=== PATIENT | male | born 1980 | race African-American/Black ===

== ENCOUNTER 2016-10-13 15:20 | Emergency (ER) | payer OTHER ==
--- NOTE | 2016-10-13 15:33 | ER Document Report ---
ED Medical Screen (RME) - General Chief Complaint: Headache Stated Complaint: HEAD PAIN Time seen by provider: 15:32 Mode of Arrival: Ambulatory Information source: Patient Notes: 36 yo male presents to ed for HTN with headache states he took his BP meds today TRAVEL OUTSIDE OF THE [place] IN LAST 30 DAYS: No - HPI Onset: This morning Onset/Duration: Persistent Quality of pain: Sharp Severity: Severe Pain Level: 5 Associated Symptoms: Headache, Nausea, Other - HTN Exacerbated by: Denies Relieved by: Denies Similar symptoms previously: Yes Recently seen / treated by doctor: No - Related Data Smoking: Quit greater than 1 year Drug Abuse: None Allergies/Adverse Reactions: Penicillins Allergy (Verified 10/13/16 15:30) Past Medical History - Past Medical History Cardiac Medical History: Reports: Hx Hypertension Neurological Medical History: Reports: Hx Migraine Psychiatric Medical History: Reports: Hx Post Traumatic Stress Disorder Past Surgical History: Reports: Hx Oral Surgery - Immunizations Hx Diphtheria, Pertussis, Tetanus Vaccination: Yes
[2016-10-13] MEDS ORDERED: ONDANSETRON 4 MG TAB.RAPDIS PO ONE (15:34)
[2016-10-13] MEDS ORDERED: ACETAMINOPHEN 325 MG TABLET PO ONE (15:34)
[2016-10-13] MEDS ORDERED: NORMAL SALINE 1000 ML 1,000 ML IV ONE (16:13)
[2016-10-13] MEDS ORDERED: DEXAMETHASONE SOD PHOSPHATE INJ 4 MG/1 ML VIAL IV ONE (16:13)
[2016-10-13] MEDS ORDERED: LORAZEPAM INJ 2 MG/1 ML VIAL IV ONE (16:14)
--- NOTE | 2016-10-13 16:17 | ER Document Report ---
ED General - General Chief Complaint: Headache Stated Complaint: HEAD PAIN Time seen by provider: 16:15 Mode of Arrival: Ambulatory Information source: Patient Notes: 36-year-old male with 2 day history of frontal headache photophobia typical 40s had for many years of migraine headaches. He reports ordinarily they will go away after he goes to sleep at that did not happen today. He reports his presenting issue now is that his blood pressure was "high" at home which she says is not normal for him and his mother wanted his blood pressure rechecked. He denies vomiting, diarrhea, chest pain, abdominal pain, back pain, or shortness of breath. He reports there is nothing new or different about this headache other than its persistence and hypertension. Physical Exam: General: Alert, appears well. HEENT: Normocephalic. Atraumatic. PERRLA. Extraocular movements intact. Discs sharp edema sclerae anicteric positive photophobia bilaterally. Tympanic members canals clear Oropharynx clear. Neck: Supple. Non-tender. No JVD no nuchal rigidity Respiratory: No respiratory distress. Clear and equal breath sounds bilaterally. Cardiovascular: Regular rate and rhythm. Abdominal: Normal Inspection. Soft, non-tender. No distension. Normal Bowel Sounds. Back: Non-tender. No deformity or step off. Extremities: Moves all four extremities. No gross deformities Neurological: Speech clear mentation normal acid filler strength 5 out of 5 equal both upper extremities motor function 5 out of 5 equal both lower extremities Psychological: Normal affect. Normal Mood. Skin: Warm. Dry. Normal color. TRAVEL OUTSIDE OF THE [place] IN LAST 30 DAYS: No - Related Data Allergies/Adverse Reactions: Penicillins Allergy (Verified 10/13/16 15:30) Past Medical History - General Information source: Patient - Social History Smoking Status: Never Smoker Chew tobacco use (# tins/day): No Frequency of alcohol use: Social Drug Abuse: None Family History: Reviewed & Not Pertinent Patient has suicidal ideation: No Patient has homicidal ideation: No - Past Medical History Cardiac Medical History: Reports: Hx Hypertension Neurological Medical History: Reports: Hx Migraine Psychiatric Medical History: Reports: Hx Post Traumatic Stress Disorder Past Surgical History: Reports: Hx Oral Surgery - Immunizations Hx Diphtheria, Pertussis, Tetanus Vaccination: Yes Review of Systems - Review of Systems Constitutional: denies: Chills, Fever EENT: denies: Ear pain, Throat pain Cardiovascular: denies: Chest pain Respiratory: denies: Cough, Short of breath Gastrointestinal: denies: Abdominal pain Genitourinary: denies: Dysuria Musculoskeletal: denies: Back pain Skin: denies: Rash Hematologic/Lymphatic: denies: Swollen glands Neurological/Psychological: denies: Weakness, Numbness Physical Exam - Vital signs Vitals: Temp Pulse Resp BP Pulse Ox 97.7 F 84 22 H 154/104 H 98 10/13/16 15:30 10/13/16 15:30 10/13/16 15:30 10/13/16 15:30 10/13/16 15:30 Course - Re-evaluation Re-evalutation: 10/13/16 19:02 Recheck blood pressure is 160/98. Patient reports headache feels somewhat better after IV fluids Decadron and Ativan emergent department. I discussed with patient concerns about blood pressure being high over appeared to many years being at higher risk for kidney problems are problems or stroke but that is not typically something that requires acute management in the emergency department for admission. He is comfortable with discharge and will provide with outpatient physician referral for follow-up 10/13/16 19:04 Headache is consistent with prior migraine headaches and does not require imaging or further workup - Vital Signs Vital signs: Temp Pulse Resp BP Pulse Ox 97.6 F 65 16 160/98 H 100 10/13/16 18:41 10/13/16 18:41 10/13/16 18:41 10/13/16 18:41 10/13/16 18:41 - Laboratory Result Diagrams: 10/13/16 15:48 10/13/16 15:48 Laboratory results interpreted by me: 10/13/16 15:48 Urine Blood MODERATE H Discharge - Discharge Clinical Impression: Headache Qualifiers: Headache type: unspecified Headache chronicity pattern: acute headache Intractability: not intractable Qualified Code(s): R51 - Headache Hypertension Qualifiers: Hypertension type: essential hypertension Qualified Code(s): I10 - Essential ( primary) hypertension Condition: Stable Disposition: HOME, SELF-CARE Instructions: Headache ([facility]) Additional Instructions: High Blood Pressure When your blood pressure was taken today it was elevated. Today's reading was . Pre-hypertension/Hypertension: The patient has been informed that they may have pre-hypertension or Hypertension based on a blood pressure reading in the emergency department. I recommend that the patient call the primary care provider listed on their dischargge instructions or a physician of their choice this wee to arrage follow up for further evaluation of possible pre- hypertension or Hypertension. Sometimes, stress or illness causes a temporary elevation of your blood pressure. We suggest that you get your blood pressure measured three more times during the next few days to see if this is more than a temporary abnormality. If your blood pressure is greater than 150/90 on each occasion, you must have treatment. Some simple things you can do to help are: If you have blood pressure medicine but aren't using it regularly, start taking it again. Get some aerobic exercise for at least 20 minutes on a daily basis. (See your doctor before beginning a new exercise program.) Eat a low-fat diet. Lose excess weight. Avoid salty foods and avoid adding salt to any of the foods you eat. Avoid diet pills, decongestants, "energizing" herbs, and other medicines that elevate blood pressure. If left untreated, hypertension greatly enhances your risk for developing heart disease and strokes. Please don't ignore this problem. Referrals: ROSA BRIDGES MD [Primary Care Provider] - Follow up in 1 week
[2016-10-13 16:18] LABS: APPEARANCE,URINE CLEAR; BILIRUBIN,URINE NEGATIVE (NEGATIVE); GLUCOSE, URINE NEGATIVE (NEGATIVE); KETONES,URINE NEGATIVE (NEGATIVE); LEUKOCYTE ESTERASE,URINE NEGATIVE (NEGATIVE); NITRITE,URINE NEGATIVE (NEGATIVE); PROTEIN,URINE NEGATIVE (NEGATIVE); URINE SPECIFIC GRAVITY 1.004; UROBILINOGEN,URINE NEGATIVE mg/dL (<2.0)
[2016-10-13 16:21] LABS: ALANINE AMINOTRANSFERASE 53 U/L (21-72); ALBUMIN 4.5 g/dL (3.5-5.0); ALKALINE PHOSPHATASE 62 U/L (38-126); ANION GAP 12 (5-19); ASPARTATE AMINO TRANSFERASE 39 U/L (17-59); BILIRUBIN,TOTAL 0.6 mg/dL (0.2-1.3); BLOOD UREA NITROGEN 9 mg/dL (7-20); CALCIUM 9.6 mg/dL (8.4-10.2); CARBON DIOXIDE 30 mmol/L (22-30); CHLORIDE 99 mmol/L (98-107); CREATININE RESULT 0.78 mg/dL (0.52-1.25); GLUCOSE 93 mg/dL (75-110); POTASSIUM 3.9 mmol/L (3.6-5.0); SODIUM 141.4 mmol/L (137-145); TOTAL PROTEIN 7.9 g/dL (6.3-8.2)
[2016-10-13 16:22] LABS: ABSOLUTE LYMPHOCYTES (AUTO) 1.3 10^3/uL (0.5-4.7); ABSOLUTE MONOCYTES (AUTO) 0.6 10^3/uL (0.1-1.4); ABSOLUTE NEUT (AUTO) 6.3 10^3/uL (1.7-8.2); BASOPHILS % (AUTO) 0.5 % (0-2); EOSINOPHILS % (AUTO) 0.6 % (0-6); HEMATOCRIT 44.7 % (37.9-51.0); HEMOGLOBIN 15.1 g/dL (13.5-17.0); HGB HCT DIFFERENCE 0.6; LYMPHOCYTES % (AUTO) 15.4 % (13-45); MEAN CORPUSCULAR HEMOGLOBIN 29.6 pg (27.0-33.4); MEAN CORPUSCULAR HGB CONC 33.7 g/dL (32.0-36.0); MEAN CORPUSCULAR VOLUME 88 fl (80-97); MONOCYTES % (AUTO) 7.7 % (3-13); RED BLOOD COUNT 5.09 10^6/uL (4.35-5.55); SEGMENTED NEUTROPHILS % (AUTO) 75.8 % (42-78); WHITE BLOOD COUNT 8.3 10^3/uL (4.0-10.5)
[2016-10-13 18:43] VITALS: BP 160/98
== END 2016-10-13 19:24 | disposition home or self-care (01) ==
LOC: ER 15:20
DX: R51 Headache (principal); H53.149 Visual discomfort, unspecified; I10 Essential (primary) hypertension; Z88.0 Allergy status to penicillin; Z86.69 Personal history of other diseases of the nervous system and sense organs
CPT/HCPCS: 99284; 96361; 96374; 96375; 36415; 85025; 80053; 81001; J1100; S0119; J2060; J7030

== ENCOUNTER → 2017-03-08 | Outpatient (CLI) | payer OTHER ==
--- NOTE | 2017-03-08 16:32 | RADIOLOGY REPORT (SQ) ---
EXAM DESCRIPTION: SHOULDER RIGHT 2 OR MORE VIEWS COMPLETED DATE/TIME: 03/08/2017 4:10 pm REASON FOR STUDY: UNSP INJURY OF RIGHT SHOULDER AND UPPER ARM, INIT ENCNTR S49.91XA UNSP INJURY OF RIGHT SHOULDER AND UPPER ARM, INIT E COMPARISON: None. NUMBER OF VIEWS: Three views. TECHNIQUE: Internal rotation, external rotation, and Y view images acquired of the right shoulder. LIMITATIONS: None. FINDINGS: MINERALIZATION: Normal. BONES: No acute fracture or dislocation. No worrisome bone lesions. JOINTS: No glenohumeral joint dislocation. Acromioclavicular joint intact. VISUALIZED LUNGS AND RIBS: No pneumothorax. No rib fracture. SOFT TISSUES: No radiopaque foreign body. OTHER: No other significant finding. IMPRESSION: NEGATIVE STUDY OF THE RIGHT SHOULDER. NO RADIOGRAPHIC EVIDENCE OF ACUTE INJURY. TECHNICAL DOCUMENTATION: JOB ID: [id number] [employer] All Rights Reserved
== END ==
LOC: OD 15:59
PROVIDERS: ATTEND Nurse Practitioner Acute Care
DX: S49.91XA Unspecified injury of right shoulder and upper arm, initial encounter (principal); X58.XXXA Exposure to other specified factors, initial encounter